=== PATIENT | female | born 1965 | race Caucasian/White ===

== ENCOUNTER 2021-07-20 13:21 | Observation (INO) ==
[2021-07-20] MEDS ORDERED: Isovue-370 500 ML BOTTLE IVP ONE (13:40)
[2021-07-20 13:52] LABS: Hemoglobin 13.3 g/dL (11.5-15.4); Mean Corpuscular HGB Conc 34.1 g/dL (31.6-35.5); Mean Corpuscular Hemoglobin 30.6 pg (28.0-33.3); Mean Corpuscular Volume 89.9 fL (83.0-100.0); Mean Platelet Volume 8.8 fL (9.4-12.4); Platelet Count 247 K/mcL (140-400); Red Blood Count 4.34 M/mcL (3.82-4.97); Red Cell Distribution Width 12.4 % (11.5-14.5); White Blood Count 8.8 K/mcL (4.3-11.1)
[2021-07-20] MEDS ORDERED: methylPREDNISolone 125 MG/2 ML VIAL ONE (13:56)
[2021-07-20 14:15] LABS: BUN/Creatinine Ratio 9 (6-26); Blood Urea Nitrogen 8 mg/dL (6-20); Calcium 9.6 mg/dL (8.6-10.3); Carbon Dioxide 31 mEq/L (23-29); Chloride 101 mEq/L (98-107); Glucose 106 mg/dL (70-105); Osmolality,Calculated 289 (280-300); Potassium 3.2 mEq/L (3.5-5.1); Sodium 140 mEq/L (136-145); eGFR For African Americans > 60 (> 60); eGFR For Non-African Americans > 60 (> 60)
[2021-07-20 14:21] LABS: Troponin I < 0.03 ng/mL (< 0.04)
[2021-07-20] MEDS ORDERED: *HR* Labetalol 20 MG/4 ML SYRINGE IVP PRN (17:19)
[2021-07-21 01:48] LABS: Basophils % 0.1 %; Hematocrit 40.7 % (35.3-44.9); Hemoglobin 14.2 g/dL (11.5-15.4); Immature Granulocytes % 0.4 % (0-4); Lymphocytes # 1.2 K/mcL (0.6-4.6); Lymphocytes % 9.4 %; Mean Corpuscular HGB Conc 34.9 g/dL (31.6-35.5); Mean Corpuscular Hemoglobin 31.1 pg (28.0-33.3); Mean Corpuscular Volume 89.3 fL (83.0-100.0); Mean Platelet Volume 9.3 fL (9.4-12.4); Monocytes # 0.1 K/mcL (0.0-1.3); Monocytes % 0.9 %; Neutrophils # 11.2 K/mcL (1.6-8.9); Platelet Count 285 K/mcL (140-400); Red Blood Count 4.56 M/mcL (3.82-4.97); Red Cell Distribution Width 12.2 % (11.5-14.5); Segmented Neutrophils % 89.2 %; White Blood Count 12.5 K/mcL (4.3-11.1)
[2021-07-21 01:51] LABS: BUN/Creatinine Ratio 16 (6-26); Blood Urea Nitrogen 12 mg/dL (6-20); Calcium 9.5 mg/dL (8.6-10.3); Carbon Dioxide 24 mEq/L (23-29); Chloride 99 mEq/L (98-107); Chol/HDL Ratio 3.4 (0-4.9); Cholesterol 144 mg/dL (< 200); Glucose 237 mg/dL (70-105); HDL Cholesterol 42 mg/dL (40-59); LDL Cholesterol,Calculated 83 mg/dL (< 100); Magnesium 1.8 mg/dL (1.6-2.6); Osmolality,Calculated 291 (280-300); Sodium 137 mEq/L (136-145); Triglycerides 94 mg/dL (< 150); eGFR For African Americans > 60 (> 60); eGFR For Non-African Americans > 60 (> 60)
[2021-07-21 02:11] LABS: Folate 8.3 ng/mL (3.0-16.0)
[2021-07-21] MEDS ORDERED: Perflutren Lipid Microsphere 1.3 ML in 0.9 % Sodium Chloride 8.7 ML IVP PRN (08:54)
[2021-07-21] MEDS ORDERED: Aspirin 81 MG TAB.CHEW PO SCH (09:00)
[2021-07-21 09:08] LABS: Estimated Average Glucose 140 mg/dl; Hemoglobin A1C 6.5 %
[2021-07-21 10:43] VITALS: PULSE 90; TEMP 98.4; O2SAT 95
[2021-07-21 13:25] VITALS: BP 133/63
== END 2021-07-21 16:02 | disposition home or self-care (01) ==
LOC: 3BNU 13:21 → EMEROOARM 13:21 → SUATTDRO 16:53 → 3BNU 17:55
PROVIDERS: ADMIT Internal Medicine; ATTEND Registered Nurse